=== PATIENT | male | born 1965 | race Caucasian/White ===

== ENCOUNTER 2025-01-11 06:47 | Day surgery (SDC) | payer OTHER ==
[2025-01-11] MEDS ORDERED: fentaNYL 100 MCG/2 ML SDV ONE (06:50)
[2025-01-11] MEDS ORDERED: Midazolam 1 MG/ML 2 ML SDV ONE (06:50)
[2025-01-11] MEDS ORDERED: Propofol 200 MG/20 ML SDV ONE (06:50)
[2025-01-11] MEDS: Lactated Ringers 1,000 ML IV SCH (07:24)
[2025-01-11 09:21] VITALS: BP 136/74; PULSE 74
== END 2025-01-11 09:33 | disposition home or self-care (01) ==
LOC: JP.SDS 06:47
PROVIDERS: ATTEND Surgery
DX: Z12.11 Encounter for screening for malignant neoplasm of colon (principal); K57.30 Diverticulosis of large intestine without perforation or abscess without bleeding
CPT/HCPCS: 45378; J2250; J2704; J3010; J7120; 00812-QZ